=== PATIENT | female | born 1990 | race Caucasian/White ===

== ENCOUNTER 2021-03-09 05:25 | Emergency (ER) | payer SELFPAY ==
[2021-03-09 05:28] VITALS: BP 132/99; PULSE 101; RESP 16; TEMP 36.6; O2SAT 99
[2021-03-09] MEDS: SODIUM CHLORIDE 0.9% IV 1,000 ML 999 ML IV CONT (05:58)
[2021-03-09 06:11] LABS: Basophils Percent Auto 0.4 % (0.2-1.2); Eosinophils Absolute Auto 0.2 K/mm3 (0-0.3); Eosinophils Percent Auto 2.4 % (0-4.4); Hematocrit 39.8 % (37.0-47.0); Hemoglobin 13.2 g/dL (12.0-15.0); Immature Granulocyte Absolute 0.03 K/mm3 (0.00-0.031); Immature Granulocyte Percent A 0.4 % (0-0.5); Lymphocytes Absolute Auto 1.47 K/mm3 (0.9-3.2); Lymphocytes Percent Auto 20.6 % (18.3-44.2); Mean Corpuscular HGB Conc 33.2 g/dl (32-36); Mean Corpuscular Hemoglobin 28.3 pg (26-34); Mean Corpuscular Volume 85.4 fl (80-100); Mean Platelet Volume 9.5 fl (7.4-10.4); Monocytes Absolute Auto 0.6 K/mm3 (0.1-0.6); Monocytes Percent Auto 8.6 % (2.6-8.5); Neutrophils Absolute Auto 4.8 K/mm3 (1.3-6.7); Neutrophils Percent Auto 67.6 % (45.5-73.1); Platelet Count Result 280 k/mm3 (150-375); Red Blood Count 4.66 M/mm3 (4.2-5.4); Red Cell Distribution Width 12.8 % (11.5-14.5); White Blood Count 7.1 K/mm3 (4.5-10.0)
[2021-03-09 06:17] LABS: Add Urine Microscopic? YES; Appearance Urine Clear (Clear); Bilirubin Urine Negative (Negative); Blood Urine 3+ (Negative); Color Urine Yellow (Yellow); Glucose Urine UA Negative (Negative); Ketones Urine Negative (Negative); Leukocyte Esterase Ur Negative LEU/UL (Negative); Mucus Urine Rare /lpf; Nitrate Urine Negative (Negative); Protein Urine 2+ mg/dL (Negative); Specific Grav Ur 1.024 (1.001-1.035); Squamous Epithelial Cell Urine Many /hpf (Few); Urobilinogen Urine Negative mg/dL (<2.0)
[2021-03-09 06:22] LABS: Alanine Aminotransferase 31 U/L (4-35); Albumin Level 4.1 g/dL (3.5-5.1); Alkaline Phosphatase 109 U/L (38-126); Anion Gap 9 mmol/L (8-16); Aspartate Amino Transferase 28 U/L (14-36); Bilirubin,Total 0.4 mg/dL (0.2-1.3); Blood Urea Nitrogen 15 mg/dL (7-17); Calcium 9.1 mg/dL (8.4-10.2); Carbon Dioxide 24 mmol/L (22-30); Chloride 108 mmol/L (98-107); Estimated CRCL calculation 62 ml/min; Estimated Glomerular Filt Rate 53; Glucose 100 mg/dL (65-110); Potassium 4.2 mmol/L (3.4-5.0); Sodium 141 mmol/L (137-145)
[2021-03-09 06:25] VITALS: BP 126/87; PULSE 91
[2021-03-09 06:34] VITALS: BP 123/98; BP 128/93; PULSE 107; PULSE 111
--- NOTE | 2021-03-09 06:49 | ED.GENADULT ---
HPI - General Adult General Chief complaint: Vaginal Bleeding Stated complaint: iud/ vaginal bleeding with clots Time Seen by Provider: 03/09/21 06:36 History of Present Illness HPI narrative: Patient is a 30-year-old female presents emerged part with chief complaint of vaginal bleeding. Patient reports that she has history of a Mirena that was placed about a year ago patient states that she started having some vaginal bleeding that started in the last 24 hours had some small clots and this evening she had some large quarter size clots. The patient states she felt a little lightheaded but no evidence of syncope. The patient reports that this is the most she has bled while she is had her Mirena but denies any injury denies her Mirena being dislodged reports that she able to cramping with this. Patient denies nausea vomiting Related Data Home Medications Medication Instructions Recorded Confirmed levothyroxine [Synthroid] 03/09/21 Allergies Allergy/AdvReac Type Severity Reaction Status Date / Time No Known Allergies Allergy Unknown Verified 03/09/21 05:44 Review of Systems Review of Systems: A 10 system review of systems was completed on the patient and is negative except for what is stated in the HPI. Nursing and ancillary documentation was reviewed. Exam Narrative: GENERAL: Well-appearing, well-nourished, and in no acute distress. HEAD: Normocephalic, atraumatic. EYES: PERRLA and EOMI. ENT: Nares clear, no rhinorrhea or epistaxis. Mucous membranes moist. NECK: Supple. CHEST: Clear to auscultation. No respiratory distress. HEART: Regular rate and rhythm. No murmur heard. Normal peripheral pulses. ABDOMEN: Soft, nontender, nondistended, normal active bowel sounds. : Speculum exam showed small amount of blood in the vaginal vault was able to be cleared with 2 swabs. EXTREMITIES: Normal range of motion. No edema. SKIN: Warm, dry, no rash. NEURO: No focal deficits. Alert and oriented x3. PSYCH: Normal mood and affect. Course Vital Signs Vital signs: Vital Signs Temperature 36.6 C 03/09/21 05:28 Pulse Rate 101 H 03/09/21 05:28 Respiratory Rate 16 03/09/21 05:28 Blood Pressure 132/99 H 03/09/21 05:28 Pulse Oximetry 99 03/09/21 05:28 Temperature 36.6 C 03/09/21 05:28 Pulse Rate 107 H 03/09/21 06:34 Respiratory Rate 16 03/09/21 05:28 Blood Pressure 123/98 H 03/09/21 06:34 Pulse Oximetry 99 03/09/21 05:28 Medical Decision Making Vital Signs Vital Signs: Vital Signs Temperature 36.6 C 03/09/21 05:28 Pulse Rate 101 H 03/09/21 05:28 Respiratory Rate 16 03/09/21 05:28 Blood Pressure 132/99 H 03/09/21 05:28 Pulse Oximetry 99 03/09/21 05:28 Temperature 36.6 C 03/09/21 05:28 Pulse Rate 107 H 03/09/21 06:34 Respiratory Rate 16 03/09/21 05:28 Blood Pressure 123/98 H 03/09/21 06:34 Pulse Oximetry 99 03/09/21 05:28 Lab Data Result diagrams: 03/09/21 05:59 03/09/21 05:59 Labs: Lab Results 03/09/21 03/09/21 03/09/21 Range/Units 05:59 05:59 05:59 WBC 7.1 (4.5-10.0) K/mm3 RBC 4.66 (4.2-5.4) M/mm3 Hgb 13.2 (12.0-15.0) g/dL Hct 39.8 (37.0-47.0) % MCV 85.4 (80-100) fl MCH 28.3 (26-34) pg MCHC 33.2 (32-36) g/dl RDW 12.8 (11.5-14.5) % Plt Count 280 (150-375) k/mm3 MPV 9.5 (7.4-10.4) fl Immature Gran % (Auto) 0.4 (0-0.5) % Neut % (Auto) 67.6 (45.5-73.1) % Lymph % (Auto) 20.6 (18.3-44.2) % [place]y % (Auto) 8.6 H (2.6-8.5) % Eos % (Auto) 2.4 (0-4.4) % Baso % (Auto) 0.4 (0.2-1.2) % Lymph # (Auto) 1.47 (0.9-3.2) K/mm3 [place]y # (Auto) 0.6 (0.1-0.6) K/mm3 Eos # (Auto) 0.2 (0-0.3) K/mm3 Baso # (Auto) 0.0 (0.0-0.1) K/mm3 Abs Immat Gran (auto) 0.03 (0.00-0.031) K/mm3 Absolute Neuts (auto) 4.8 (1.3-6.7) K/mm3 Absolute Nucleated RBC 0.0 (0.0-0.012) K/mm3 Nucleated RBC % 0.0 (0.0-0.2) % Sodium 141 (137
[2021-03-09 07:07] VITALS: BP 120/88; PULSE 85; RESP 21; O2SAT 100
== END 2021-03-09 07:09 | disposition home or self-care (01) ==
PROVIDERS: Emergency Provider Emergency Medicine; PCP Internal Medicine
DX: N93.9 Abnormal uterine and vaginal bleeding, unspecified (principal); Z97.5 Presence of (intrauterine) contraceptive device
CPT/HCPCS: 36415; 80053; 81001; 81025; 85025; 96360; 99284; J7030

== ENCOUNTER 2022-04-27 01:41 | Day surgery (SDC) | payer BC, SELFPAY ==
[2022-04-20 13:45] VITALS: BMI 39.0
--- NOTE | 2022-04-20 13:46 | PC.NURSE ---
Report to the Outpatient Waiting Room, entrance under the green pavilion located off [facility], at time _1000__ on date _04/27/22__. Planned Procedure Time: _1200_. Time changes happen often and if your time is changed the preop area will call you the afternoon before. - You and your visitor will be asked to self-screen and do not enter if you have any COVID symptoms. - We encourage only one visitor and NO visitors under age 16 are allowed at this time. Your visitor will receive communication by the phone number that is given day of service. - The patient visitor is requested to social distance or may leave the building when not with patient due to restrictions. - A mask is required within the hospital. Patients may have clear liquids (water, carbonated beverages, clear teas, apple juice) until 3 hours prior to surgery with a maximum of 20 ounces. - No food from midnight until time of surgery - Infants may have breast milk until 4 hours before surgery, infant formula 6 hours prior to surgery. - Children will be allowed to drink immediately following surgery. If applicable, please bring a bottle or sippy cup to assist with drinking. Juice, water, soda, and popsicles are readily available. For infants on formula, please bring formula the day of surgery. Pacifiers are allowed. Take the following medications with a SIP of water the morning of surgery: _Synthroid__ Medications to discontinue per physician __vitamins or supplements 3 days prior____ Date to take last dose Please no make-up, nail pakistani, hairspray, perfume, deodorant, or body powder the day of surgery. No jewelry (including any body piercings) or valuables the day of surgery, leave them at home. Please take a shower or bath the night before, or the morning of, surgery with an antibacterial soap. Wear comfortable, loose fitting clothing. Children are encouraged to wear pajamas. - Jewelry must be removed prior to entering the operating room. Rings and piercings that are not removed may be cut off. - The hospital will not accept responsibility for valuables. - Please leave all valuables, including medications, at home the day of surgery. If you are going home after surgery, a licensed bulk driver must drive you home. - NO public transportation without another adult. - We recommend that an adult stay with you for 24 hours following discharge. - We also recommend that you do not drive, make important decision, drink alcoholic beverages, or take any drugs that were not prescribed by your health care provider for at least 24 hours after your discharge time. For Pediatric surgeries, we recommend two adults accompany the child home. Follow any additional instructions given to you from your surgeon. If you or anyone in your household have experienced Covid symptoms in the past week, please notify your surgeon or the nurse liaison at the phone number below for possible testing. Telephone instructions given to _patient_and asked if any additional questions and then verbalized understanding. Patient advised to call surgeon office or pre surgery nurse liaison [phone] if any additional questions.
[2022-04-27] VITALS (9 sets, daily range): BP systolic 91–132; BP diastolic 63–92; PULSE 54–86; RESP 10–18; TEMP 36.1–36.4; O2SAT 97–100
[2022-04-27] MEDS: ACETAMINOPHEN 500 MG TABLET 1000 MG PO (10:21)
[2022-04-27] MEDS: KETOROLAC 15 MG/ML VIAL (*BKC) IV PUSH (10:28)
[2022-04-27] MEDS: LACTATED RINGERS 1,000 ML 30 ML IV CONT (11:30)
--- NOTE | 2022-04-27 11:36 | PM.IMHP ---
H&P: HPI History of Present Illness Date/Time: 04/27/22 11:36 Chief Complaint: Pain. Narrative: 31 y/o with a Mirena IUD in place. She has no menses, but has cyclic pelvic pain lasting 5 days every month. Ultrasound shows IUD in the expected location in the endometrial cavity. She desires surgical management of her problem. In addition, she does not desire any future childbearing. Review of Systems Review of Systems: All systems reviewed & are unremarkable except as noted in HPI and below PMFSH Past Medical History Medical History Glomerulonephritis Hypothyroidism Surgical History Surgical History History of 2 sections History of biopsy History of termination of Family History Family History Other Diabetes mellitus Heart disease Hypertension Social History Social History Smoking status: Former smoker Tobacco type: e-cigarettes/vaping Alcohol intake: current Drinks per week: 1 Alcohol use details: Socially Substance use: never Substance use type: does not use Last use: 03/17/22 Living arrangements: with family Spiritual care concerns: No Meds Home Medications and Allergies Home Medications Medication Instructions Recorded Confirmed Type levothyroxine 150 mcg tablet 150 mcg PO DAILY 03/09/21 04/27/22 History (Synthroid) Allergies Allergy/AdvReac Type Severity Reaction Status Date / Time No Known Allergies Allergy Unknown Verified 04/27/22 10:20 Vital Signs Vital Signs - 24 hr 04/27/22 09:59 Temperature 36.1 C L Pulse Rate 85 Respiratory Rate 16 Blood Pressure 132/92 H Pulse Oximetry 99 Oxygen Delivery Room Air Exam Const: Orientation/consciousness: patient oriented x3 Other: Well-developed, well-nourished female in no acute distress. Neck: Thyroid: thyroid normal Lymphatic: no lymphadenopathy noted (in neck, axilla or inguinal nodes) Resp: Effort & Inspection: normal respiratory effort Auscultation: clear to auscultation bilaterally Cardio: Rate: regular rate Rhythm: regular rhythm Heart sounds: S1 normal heart sound present and S2 normal heart sound present GI: Other: ABD: Soft, nontender, nondistended. No guarding or rebound tenderness. No hepatosplenomegaly. : General: Yes no CVA tenderness Other: External genitalia: normal female hair distribution, without lesion. Urethral meatus: no lesion, non prolapsed. Bladder: no mass, nontender Vagina: well-estrogenized, without lesion or discharge. No cystocele or rectocele. Cervix: no lesion or discharge. IUD strings noted. Uterus: small, anteverted, freely mobile, nontender Adnexa: no mass or tenderness. Anus/perineum: no lesions, nontender Back/Spine/Pelvis: Back: no CVA tenderness Skin: General skin exam: normal color and no rashes or lesions noted Neuro: General: patient oriented x3 Extrem: Other: Extremities: nontender with no edema Psych: Mental Status: mental status grossly normal Affect: normal affect Assessment and Plan Assessment and plan (1) Dysmenorrhea: Code(s): N94.6 - Dysmenorrhea, unspecified Status: Acute Assessment and Plan: A: Dysmenorrhea. Desired sterility. P: We reviewed medical as well as surgical treatment options. She prefers the latter. Specifically, I have offered her a laparoscopic bilateral tubal ligation, removal of IUD, hysteroscopy, dilation and sharp curettage, and endometrial ablation. She understands there are temporary methods of contraception available to her. She understands that there are nonsurgical options as well as surgical options. She understands that tubal ligation will render her permanently sterile. She understands that there is a failure rate associ
--- NOTE | 2022-04-27 11:51 | WPDANESEPPF ---
Anes - Initial Pre Proc Eval Procedure: Operation Date: 04/27/22 12:00 Proposed Procedures p Laparoscopic Bilateral Tubal Ligation with Fallopian Rings - Jono Reynolds MD s Hysteroscopy Dilation and Curettage, Brionna Endometrial Ablation, Removal of Intrauterine Device - Jono Reynolds MD Date/Time: 04/27/22 11:51 Surgeon: Jono Reynolds MD Pre Op Diagnosis: Desire Serili, Dysmenorrhea Patient Data Age: 31 Gender: F Height: 1.52 m Weight: 91.8 kg Last Vital Signs Temp 96.9 F L 04/27/22 09:59 Pulse 85 04/27/22 09:59 Resp 16 04/27/22 09:59 BP 132/92 H 04/27/22 09:59 Pulse Ox 99 04/27/22 09:59 O2 Del Method Room Air 04/27/22 09:59 Allergies Allergy/AdvReac Type Severity Reaction Status Date / Time No Known Allergies Allergy Unknown Verified 04/27/22 10:20 Home Medications Medication Instructions Recorded Confirmed Type levothyroxine 150 mcg tablet 150 mcg PO DAILY 03/09/21 04/27/22 History (Synthroid) Patient hx anesthesia problems: none Family hx anesthesia problems: none Results Review: All pre-operative results and documents have been reviewed as part of the pre-operative evaluation. [facility] Past Medical History Medical History Glomerulonephritis Hypothyroidism Surgical History Surgical History History of 2 sections History of biopsy History of termination of Family History Family History Other Diabetes mellitus Heart disease Hypertension Social History Social History Smoking status: Former smoker Tobacco type: e-cigarettes/vaping Alcohol intake: current Drinks per week: 1 Alcohol use details: Socially Substance use: never Substance use type: does not use Last use: 03/17/22 Living arrangements: with family Spiritual care concerns: No Anes - Eval Final PreProcedure Day of Procedure 04/27/22 11:51 Patient weight: morbidly obese Heart: regular rate and rhythm Lungs: clear to auscultation Airway: Mallampati scale class II Neurological: alert and oriented Last oral intake: >/= 8 hours ASA classification: III Emergent: no Anesthetic plan: proceed Anesthesia type and monitoring: general ETT and standard monitoring Results Review: All pre-operative results and documents have been reviewed as part of the pre-operative evaluation. Informed Consent: The patient's anesthetic plan and its attendant risks and benefits were discussed with the patient/family/POA. Questions were solicited and answers provided to the satisfaction of the patient/family/POA.
--- NOTE | 2022-04-27 11:53 | WPDHPUPDATE1 ---
History and Physical Update Update Date/Time: 04/27/22 11:53 History and Physical has been reviewed, including an updated exam of the patient. There are NO changes in the patient's condition. Risks, benefits, and alternatives have been discussed and questions answered. Patient agrees to proceed with procedure.
[2022-04-27] MEDS: LIDOCAINE 1% BUFFERED WITH 8.4% SODIUM BICARB 1 ML SYRINGE 16 ML INFILTRATE (12:30)
--- NOTE | 2022-04-27 12:50 | P.OP_ITS ---
Procedure Note - Detailed Date of Procedure 04/27/22 Pre-op Diagnosis Dysmenorrhea Desired sterility Post-op Diagnosis Same Procedure Performed Laparoscopic bilateral tubal ligation with Falope rings Removal of IUD Hysteroscopy Dilation and sharp curettage Endometrial ablation Surgeon Jono Reynolds MD Anesthesia General and Local (1% lidocaine) Findings Normal-appearing uterus, tubes, ovaries, anterior and posterior cul de sac, bilateral round and uterosacral ligaments, and vermiform appendix. Normal-chavo earing endometrial cavity. Both tubal ostia were seen. The IUD was intact. Description of Procedure The patient was taken to the operating room where general endotracheal anesthesia was administered. She was prepared and draped in the usual sterile fashion in dorsal lithotomy position. The bladder was drained with a red rubber catheter. A sterile speculum was placed into the vagina. The anterior lip of the cervix was grasped with a single-tooth tenaculum. The acorn uterine manipulator was placed. The speculum was withdrawn. Gloves were changed and attention was turned the abdomen. An infraumbilical skin incision was made with a scalpel. The abdomen was tented and a 5mm bladeless trocar was advanced under direct laparoscopic visualization. Pneumoperitoneum was administered using carbon dioxide gas. A survey of the pelvis and abdomen revealed the findings noted above. A second skin incision was made in the midline above the symphysis pubis and an 8mm bladeless trocar was advanced under direct laparoscopic visualization. The fallopian tube on the right side was followed out to the fimbriated end for identification. It was then grasped in the midportion with the Falope ring applicator. The Falope ring was applied. A good loop of tube was noted to be distal to the ring. Hemostasis was excellent. The device was reloaded and the contralateral tube was similarly identified and ligated. An excellent application was noted here as well. A total of 6mL of 1% lidocaine was infiltrated into the serosa of the proximal tubes for postoperative anesthesia. The ports were withdrawn. The gas was allowed to escape. The skin incisions were reapproximated using interrupted subcuticular sutures of 4 0 Vicryl. Dermaflex was applied externally. Attention was redirected to the vagina. The acorn manipulator was withdrawn and the speculum was reintroduced. The IUD strings were grasped with a ring forceps and the IUD was easily removed, intact, and discarded. The anterior lip of the cervix was grasped with single- tooth tenaculum. Ten mL of 1% lidocaine was administered in a paracervical block. The cervix was then gently dilated using Hegar dilators until an 8 mm dilator could be passed. Hysteroscopy was performed using sterile saline as a distention medium. Findings are as noted above. Sharp curettage was then performed, and endometrial curettings were collected on a Telfa pad and passed off to be sent to pathology. Finally, the the Brionna device was advanced and endometrial ablation commenced without difficulty. The device was withdrawn and a second look was taken using the hysteroscope. Excellent coverage of the endometrial cavity was noted. The tenaculum was removed. Hemostasis was excell ent. Sponge, lap, needle and instrument counts were correct. The patient was awakened and taken to the recovery room in stable condition. I was present and scrubbed through the entire procedure. Implants Falope rings x 2 Estimated Blood Loss 5 Drains No Packing No Pathology Yes (Endometrial curettings) Complications None Condition Stable Disposition PACU
[2022-04-27] MEDS: ONDANSETRON INJ 4 MG/2 ML VIAL IV PUSH (13:06)
[2022-04-27] MEDS: fentaNYL CITRATE INJ (*CRX) 100 MCG/2 ML VIAL 25 MCG IV PUSH ×6 (13:11→14:32)
[2022-04-27] MEDS: KETOROLAC 30 MG/ML VIAL (*BKC) IV PUSH (13:34)
[2022-04-27] MEDS: diphenhydrAMINE HCl INJ 50 MG/ML VIAL 25 MG IV PUSH (14:16)
[2022-04-27] MEDS: SCOPOLAMINE 1.5 MG PATCH TRANSDERM (14:17)
== END 2022-04-27 15:29 | disposition home or self-care (01) ==
PROVIDERS: PCP Internal Medicine; Visit Provider Obstetrics & Gynecology
PROC: (CPT 58671; principal; 2022-04-27 12:00)
PROC: 0U5B8ZZ Destruction of Endometrium, Via Natural or Artificial Opening Endoscopic (ICD-10-PCS; CPT 58563; 2022-04-27 12:00)
DX: N94.6 Dysmenorrhea, unspecified (principal); Z30.2 Encounter for sterilization; Z30.432 Encounter for removal of intrauterine contraceptive device; E03.9 Hypothyroidism, unspecified; Z87.891 Personal history of nicotine dependence; E66.01 Morbid (severe) obesity due to excess calories; Z68.39 Body mass index [BMI] 39.0-39.9, adult
CPT/HCPCS: 58671; 58563; 58301; 88305; A4264; A9270; J0330; J1100; J1200; J1885; J2250; J2405; J2704; J3010; J7030; J7120

== ENCOUNTER 2023-10-11 15:55 | Emergency (ER) | payer SELFPAY ==
--- NOTE | ~2023-10-11 | CT_ITS ---
EXAMINATION: CT soft tissue neck w con DATE: 10/11/2023 18:03 INDICATION: Tongue swelling. TECHNIQUE: Computed tomography (CT) of the neck was performed with 75 mL Omnipaque-350 intravenous co ntrast. Automated exposure control and iterative reconstruction technique were employed. The dose-sonal gth product was 527.21 mGy-cm. COMPARISON: None FINDINGS: There is fat stranding around right submandibular gland. There is mild right internal jugul ar chain lymphadenopathy. The paranasal sinuses are clear. The mastoid air cells are normal. IMPRESSION: 1. Sialadenitis involving right submandibular gland. No sialolith. 2. Mild right high internal jugular chain lymphadenopathy, likely reactive. Reviewed, dictated and finalized at location E.
[2023-10-11 16:09] VITALS: BP 129/84; PULSE 16; RESP 18; TEMP 36.6; O2SAT 96
--- NOTE | 2023-10-11 16:21 | ED.GENADULT ---
HPI - General Adult General Chief complaint: Unspecified Stated complaint: blisters on tongue? Time Seen by Provider: 10/11/23 16:21 History of Present Illness HPI narrative: patient is a 33-year-old female who presents ER with tongue swelling and sore throat. Reports sore throat for 5 days. We she also began developing some cold sores to her outer lips and chin and upper lip for the same Amount of time. Today she has developed some blisters to her tongue as well as some tongue swelling. Does not endorse fevers or chills. Has had a little bit of drooling but is still able to swallow water in her secretions. She pressure jaw is sore and it is hard to open her mouth. Related Data Home Medications Medication Instructions Recorded Confirmed levothyroxine 150 mcg tablet 150 mcg PO DAILY 03/09/21 04/27/22 (Synthroid) escitalopram oxalate 10 mg tablet mg 10/11/23 10/11/23 Allergies Allergy/AdvReac Type Severity Reaction Status Date / Time No Known Allergies Allergy Unknown Verified 10/11/23 16:11 Review of Systems Review of Systems: All systems reviewed & are unremarkable except as noted in HPI and below Constitutional: Constitutional: Reports no additional constitutional complaints ENT: Reports dysphagia, Reports hoarseness, Reports mouth lesions, Denies nasal congestion, Reports sore throat, Denies throat swelling and Reports tongue swelling Cardiovascular: Cardiovascular: Reports no additional cardiovascular complaints Respiratory: Respiratory: Reports no additional respiratory complaints Gastrointestinal: Gastrointestinal: Reports no additional gastrointestinal complaints [facility] Past Medical History Medical History Glomerulonephritis Hypothyroidism Surgical History Surgical History History of 2 sections History of biopsy History of termination of Family History Family History Other Diabetes mellitus Heart disease Hypertension Social History Social History Smoking status: Former smoker Tobacco type: e-cigarettes/vaping Alcohol intake: current Drinks per week: 1 Alcohol use details: Socially Substance use: never Substance use type: does not use Last use: 03/17/22 Living arrangements: with family Gender identity (if verbalized by the patient): Female Sexual Orientation (if Verbalized by the Patient): Straight or Heterosexual Spiritual care concerns: No Exam Narrative: GENERAL: Ill-appearing, well-nourished, and in Mild distress. HEAD: Normocephalic, atraumatic. ENT: Mucous membranes moist. ulcerated cold sores upper lip and chin and the creases of mouth. Tongue mildly swollen with mild ulceration lateral right tongue, unsure if she bit this area. Tongue depressor allows me to see the top the soft palate but it is difficult to visualize the tonsils. NECK: Tender anterior cervical chain lymphadenopathy right greater than left and also right submandibular tenderness. CHEST: Clear to auscultation. No respiratory distress. HEART: Regular rate and rhythm. Normal peripheral pulses. EXTREMITIES: Normal range of motion. No edema. SKIN: Warm, dry, no rash. NEURO: Alert and oriented x3. Course Course Emergency Course: Patient feels markedly improved after Toradol and Decadron IV. Tongue is still swollen but she is having an easier time speaking and she is tolerating her oral secretions. She is able to drink without issue. Her pain is also decreased. I have discussed the case with Dr. Bruce PAUL and described the exam in detail as well as patient presentation and change in status after medications. He does not feel patient requires admission or follow-up in his office. He feels that she just needs to continue NSAIDs, antibiot
[2023-10-11] MEDS: SODIUM CHLORIDE 0.9% IV 1,000 ML 999 ML IV CONT (17:20)
[2023-10-11] MEDS: KETOROLAC 15 MG/ML VIAL (*BKC) IV PUSH (17:21)
[2023-10-11] MEDS: dexAMETHasone SOD PHOS INJ 10 MG/ML 1 ML VIAL IV PUSH (17:21)
[2023-10-11 17:27] LABS: Hematocrit 41.4 % (37.0-47.0); Hemoglobin 13.3 g/dL (12.0-15.0); Mean Corpuscular HGB Conc 32.1 g/dl (32-36); Mean Corpuscular Hemoglobin 27.2 pg (26-34); Mean Corpuscular Volume 84.7 fl (80-100); Mean Platelet Volume 9.4 fl (7.4-10.4); Platelet Count Result 315 k/mm3 (150-375); Red Blood Count 4.89 M/mm3 (4.2-5.4); Red Cell Distribution Width 12.4 % (11.5-14.5); White Blood Count 15.4 K/mm3 (4.5-10.0)
[2023-10-11 17:36] LABS: Prothrombin Time 13.8 Seconds (11.1-14.7)
[2023-10-11 17:37] LABS: Alanine Aminotransferase 37 U/L (6-35); Albumin Level 4.4 g/dL (3.5-5.1); Alkaline Phosphatase 125 U/L (38-126); Anion Gap 10 mmol/L (4-12); Aspartate Amino Transferase 27 U/L (14-36); Bilirubin,Total 0.9 mg/dL (0.2-1.3); Blood Urea Nitrogen 15 mg/dL (7-17); Calcium 9.7 mg/dL (8.4-10.2); Carbon Dioxide 22 mmol/L (22-30); Chloride 108 mmol/L (98-107); Estimated CRCL calculation 74 ml/min; Estimated Glomerular Filt Rate > 60; Glucose 118 mg/dL (65-110); Partial Thromboplastin Time 29.3 Seconds (22.3-36.8); Potassium 4.2 mmol/L (3.4-5.0); Sodium 140 mmol/L (137-145)
[2023-10-11 17:55] LABS: Band Neutrophils Percent 4 % (0-6); Lymphocytes Absolute Manual 0.61 K/mm3 (1.1-4.5); Monocytes Absolute Manual 0.92 K/mm3 (0.1-0.90); Monocytes Percent Manual 6 % (3-9); Neutrophils Absolute Manual 13.86 K/mm3 (1.7-7.2); Neutrophils Percent Manual 86 % (46-73); Platelet Estimate Adequate (Adequate); Total Cells Counted 100
[2023-10-11 17:56] LABS: Schistocytes None Seen
[2023-10-11 17:58] LABS: Strep Group A RT-PCR DETECTED (Negative)
[2023-10-11] MEDS: AMPICILLIN SULB 3 GM/NS 100 ML 3 GM/100 ML VIAL IVPB (18:36)
[2023-10-11 19:00] VITALS: BP 131/96; PULSE 80; RESP 17; O2SAT 97
[2023-10-11 20:26] VITALS: BP 129/93; PULSE 82; RESP 16; O2SAT 99
== END 2023-10-11 20:27 | disposition home or self-care (01) ==
PROVIDERS: Emergency Provider Emergency Medicine
DX: J02.0 Streptococcal pharyngitis (principal); K11.20 Sialoadenitis, unspecified; B00.1 Herpesviral vesicular dermatitis; E03.9 Hypothyroidism, unspecified; N05.9 Unspecified nephritic syndrome with unspecified morphologic changes; Z87.891 Personal history of nicotine dependence
CPT/HCPCS: 36415; 70491; 80053; 85025; 85610; 85730; 86658; 87651; 96361; 96365; 96375; 99284; J0295; J1100; J1885; J7030; Q9967

== ENCOUNTER 2024-04-10 17:50 | Emergency (ER) | payer OTHER, SELFPAY ==
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
[2024-04-10 17:58] VITALS: BP 140/105; PULSE 75; RESP 16; TEMP 36.4; O2SAT 100
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
[2024-04-10] MEDS: KETOROLAC 15 MG/ML VIAL (*BKC) IM (20:18)
== END 2024-04-10 20:21 | disposition home or self-care (01) ==
LOC: ANHED 20:16
PROVIDERS: Emergency Provider Emergency Medicine
DX: S19.9XXA Unspecified injury of neck, initial encounter (principal); S59.901A Unspecified injury of right elbow, initial encounter; E03.9 Hypothyroidism, unspecified; Z87.891 Personal history of nicotine dependence; Z79.899 Other long term (current) drug therapy; M47.812 Spondylosis without myelopathy or radiculopathy, cervical region; V49.40XA Driver injured in collision with unspecified motor vehicles in traffic accident, initial encounter
CPT/HCPCS: 72125; 73080; 96372; 99284; J1885